=== PATIENT | male | born 1960 | race Caucasian/White ===

== ENCOUNTER 2019-06-05 13:21 | Emergency (ER) | payer OTHER, SELFPAY ==
[2019-06-05 13:40] VITALS: BP 155/92; PULSE 68; RESP 13; TEMP 35.5; O2SAT 99
[2019-06-05 14:38] LABS: Add Manual Diff / Slide Review NO; Basophils Absolute Auto 0 /uL (0-100); Basophils Percent Auto 0.5 % (0-2); Eosinophils Absolute Auto 200 /uL (0-450); Hematocrit 40.8 % (41-53); Hemoglobin 13.9 g/dL (13.5-17.5); Lymphocytes Absolute Auto 1800 /uL (1100-4500); Lymphocytes Percent Auto 19.1 % (25-40); Mean Corpuscular Hemoglobin 29.5 PG (26-34); Mean Corpuscular Volume 86.8 fL (80-100); Monocytes Absolute Auto 900 /uL (0-900); Monocytes Percent Auto 9.1 % (3-14); Neutrophils Absolute Auto 6600 /uL (1500-7000); Neutrophils Percent Auto 69.3 % (50-75); Platelet Count 259 X10^3/uL (150-400); Red Blood Cell Count 4.71 X10^6/uL (4.5-5.9); Red Cell Distribution Width 13.3 % (11.6-14.8); White Blood Cell Count 9.6 X10^3/uL (4.5-11.0)
[2019-06-05 14:55] LABS: Alanine Aminotransferase 28 IU/L (<50); Albumin 4.6 g/dL (3.5-5.0); Albumin Globulin Ratio 1.4 (1.0-2.8); Alkaline Phosphatase 100 U/L (38-126); Aspartate Aminotransferase 28 IU/L (17-59); BUN Creatinine Ratio 18.6 (6-22); Bilirubin Total 0.5 mg/dL (0.2-1.3); Blood Urea Nitrogen 13 mg/dL (9-20); Calcium 9.5 mg/dL (8.4-10.2); Carbon Dioxide 28 mmol/L (22-32); Chloride 100 mmol/L (98-107); Creatine Kinase 71 U/L (55-170); Estimated Glomerular Filt Rate > 60.0 mL/min (>60); Globulin 3.2 g/dL (1.7-4.1); Glucose 119 mg/dL (70-100); HEMOLYSIS < 15 (0-50); Potassium 4.4 mmol/L (3.4-5.1); Sodium 140 mmol/L (137-145); Total Protein 7.8 g/dL (6.3-8.2)
[2019-06-05 15:07] LABS: Troponin I < 0.012 ng/mL (0.01-0.034)
--- NOTE | 2019-06-05 15:29 | DI.RAD.S_ITS ---
PROCEDURE: XR CHEST 1V INDICATIONS: Palpitations TECHNIQUE: One view of the chest was acquired. COMPARISON: None. FINDINGS: Surgical changes and devices: None. Lungs and pleura: On this semiupright portable chest examination, no large pneumothorax or large pleural effusions are seen. No focal infiltrates are seen. Mediastinum: Mediastinal contours appear normal. Heart size is normal. Atherosclerotic calcification of the aortic arch is noted. Bones and chest wall: No suspicious bony lesions. Age-appropriate bony degenerative changes are seen. Overlying soft tissues appear unremarkable. IMPRESSION: Portable chest within normal limits. Dictated by: Denis Andrade M.D. on 06/05/2019 at 14:58 Approved by: Denis Andrade M.D. on 06/05/2019 at 14:58
--- NOTE | 2019-06-05 15:46 | ED.ARRPALP ---
HPI - Arrhythmia/Palpitations <MADELEINE Dai - Last Filed: 06/05/19 21:28> General Chief Complaint: Arrhythmia/Palpitations Stated Complaint: Pain and numbness on left side Time Seen by Provider: 06/05/19 15:28 Mode of arrival: Ambulatory History of Present Illness HPI narrative: 59-year-old male with a history of diabetes II, hyperlipidemia, and hypertension, presents emergency department today complaining of left substernal chest pressure and pain over the past week. He states it is intermittent 6/10 and is slightly worse with activity. He states he seen his primary care provider a few days ago for these episodes and was given new blood pressure medication. He has been taking the new blood pressure medication but states he has been feeling ?not well ?all weekend. However, today he reports feeling some shortness of breath with exertion and left arm numbness and tingling, he states the symptoms resolved after he rested for 5-10 minutes. He states occasionally he feels like he can feel his heart beat in his neck and his blood pressure machine registered ?irregular heart beat ?. Patient denies vomiting, fevers, diarrhea, abdominal pain, history of heart problems, cardiac surgeries, or other concerns. He states both of his brothers have had MIs in their 50s. Review of Systems <MADELEINE Dai - Last Filed: 06/05/19 21:28> Review of Systems Narrative: REVIEW OF SYSTEMS: GENERAL: Denies fever or chills. HENT: No head trauma, hearing loss or sore throat. EYES: No loss of vision, double vision, eye pain, or irritation. CARDIOVASCULAR: Patient reports chest pain, see HPI. RESPIRATORY: Patient reports intermittent shortness of breath, see HPI. GASTROINTESTINAL: No nausea, vomiting, diarrhea, or constipation. GENITOURINARY: No flank pain or dysuria. MUSCULOSKELETAL: No pain, weakness, or deformities. INTEGUMENTARY: No rash, lesions, or pruritus. NEURO: No numbness, tingling, memory loss, or confusion. PSYCH: No behavior or mood changes. Patient History <MADELEINE Dai - Last Filed: 06/05/19 21:28> Medical History Diabetes (Acute) Hypertension (Acute) Obesity (Acute) alcohol intake frequency: 0-2 drinks per day Exam <MADELEINE Dai - Last Filed: 06/05/19 21:28> Narrative Exam Narrative: PHYSICAL EXAMINATION: GENERAL: Well groomed, alert, and cooperative. Answers questions promptly and appropriately. Vital signs noted. HENT: Normocephalic, atraumatic. Ear canals patent. Oral mucosa is pink and moist. EYES: Conjunctiva pink, sclera white, no periorbital swelling. CHEST: Normal to inspection and without deformities. CARDIOVASCULAR: S1 and S2 sounds normal. Regular rate and rhythm, no murmurs, clicks, or bruits. No pedal edema. RESPIRATORY: Normal respiratory rate, trachea midline, airway patent. No stridor, nasal flaring or accessory muscle use. Lungs are clear in all tran without wheeze, rhonchi, or crackles. GASTROINTESTINAL: Bowel sounds normoactive. Abdomen is soft and non-tender. No organomegaly. MUSCULOSKELETAL: Normal gait and coordination. Equal tone and mass bilaterally. EXTREMITIES: CMS intact. Moves all extremities. SKIN: Warm, dry, soft, appropriate color for ethnicity. No lesions, rashes, or wounds. NEURO: Alert and Oriented X 3. Good coordination. No ataxia, or sensory deficits, or cognitive issues. PSYCH: Appropriate affect and mood. Initial Vital Signs Initial Vital Signs: Vital Signs Temperature 96 F L 06/05/19 13:40 Pulse Rate 68 06/05/19 13:40 Respiratory Rate 13 06/05/19 13:40 Blood Pressure 155/92 H 06/05/19 13:40 Pulse Oximetry 99 06/05/19 13:40 <Amanda Alvarez DO - Last Filed: 06/10/19 18:24> Initial Vital Signs Initial Vital Signs: Vital Signs Temperature 96 F L 06/05/19 13:40 Pulse Rate 68 06/05/19 13:40 Respiratory Rate 13 06/05/19 13:40 Blood Pressure 155/92 H 06/05/19 13:40 Pulse Oximetry 99 06/05/19 13:40 Scores <Brianne MADELEINE Nobles - Last Filed: 06/05/19 21:28> HEART Score Heart Score history: Moderately Suspicious Heart Score EKG: Normal Heart Score Age: 45-64 years old Heart Score risk factors: > 3 risk factors or hx of atherosclerotic disease Heart Score troponin: < or = to normal limit Heart Score Total: 4 PERC Score Age greater than or equal to 50 years: Yes Heart rate greater than or equal to 100 bpm: No Room Air O2 Sat less than 95%: No Unilateral leg swelling: No Recent trauma or surgery: No Hemoptysis: No Prior PE or DVT: No Hormone Use: No Total PERC Score: 1 Course <BrianneMADELEINE Brenner - Last Filed: 06/05/19 21:28> Course Course Narrative: I had an extensive conversation with patient about his risk factors for coronary artery disease, he was given option for admission under observation or close outpatient treatment. Patient elected close outpatient treatment. This is acceptable as his labs, x-ray, EKG, or non-remarkable in his heart score is a 4. Orders Ordered: ED Orders 06/05/19 14:26 Complete Blood Count AUTO DIFF Stat Comprehensive Metabolic Panel Stat Troponin & CK Cardiac Panel Stat 06/05/19 15:29 XR chest 1V Stat Reevaluation(s) Reevaluation #1: Upon discharge, patient continued to deny chest pain. Consultations Consultation #1: Patient staffed with Dr. Alvarez. Vital Signs Vital signs: Vital Signs - 8 hr 06/05/19 13:40 Temperature 96 F L Pulse Rate 68 Respiratory Rate 13 Blood Pressure 155/92 H Pulse Oximetry 99 <Amanda Alvarez DO - Last Filed: 06/10/19 18:24> Orders Ordered: ED Orders 06/05/19 14:26 Complete Blood Count AUTO DIFF Stat Comprehensive Metabolic Panel Stat Troponin & CK Cardiac Panel Stat 06/05/19 15:29 XR chest 1V Stat Vital Signs Vital signs: Vital Signs - 8 hr 06/05/19 13:40 Temperature 96 F L Pulse Rate 68 Respiratory Rate 13 Blood Pressure 155/92 H Pulse Oximetry 99 MDM - Arrhythmia/Palpitations <BrianneMADELEINE Brenner - Last Filed: 06/05/19 21:28> Medical Records Attestation: I reviewed the patient's medical records. Lab Data Attestation: I reviewed the patient's lab results. Result diagrams: 06/05/19 14:26 06/05/19 14:26 Labs: Lab Results 06/05/19 06/05/19 Range/Units 14:26 14:26 WBC 9.6 (4.5-11.0) X10^3/uL RBC 4.71 (4.5-5.9) X10^6/uL Hgb 13.9 (13.5-17.5) g/dL Hct 40.8 L (41-53) % MCV 86.8 (80-100) fL MCH 29.5 (26-34) PG MCHC 34.0 (30-36) % RDW 13.3 (11.6-14.8) % Plt Count 259 (150-400) X10^3/uL Neut % (Auto) 69.3 (50-75) % Lymph % (Auto) 19.1 L (25-40) % [place] % (Auto) 9.1 (3-14) % Eos % (Auto) 2.0 (2-4) % Baso % (Auto) 0.5 (0-2) % Neut # (Auto) 6600 (5937-1153) /uL Lymph # (Auto) 1800 (4524-5474) /uL [place] # (Auto) 900 (0-900) /uL Eos # (Auto) 200 (0-450) /uL Baso # (Auto) 0 (0-100) /uL Sodium 140 (137-145) mmol/L Potassium 4.4 (3.4-5.1) mmol/L Chloride 100 (98-107) mmol/L Carbon Dioxide 28 (22-32) mmol/L BUN 13 (9-20) mg/dL Creatinine 0.70 (0.66-1.25) mg/dL Estimated GFR > 60.0 (>60) mL/min BUN/Creatinine Ratio 18.6 (6-22) Glucose 119 H (70-100) mg/dL Calcium 9.5 (8.4-10.2) mg/dL Total Bilirubin 0.5 (0.2-1.3) mg/dL AST 28 (17-59) IU/L ALT 28 (<50) IU/L Alkaline Phosphatase 100 (38-126) U/L Total Creatine Kinase 71 (55-170) U/L CK-MB (CK-2) TNP CK-MB (CK-2) Rel Index TNP Troponin I < 0.012 (0.01-0.034) ng/mL Total Protein 7.8 (6.3-8.2) g/dL Albumin 4.6 (3.5-5.0) g/dL Globulin 3.2 (1.7-4.1) g/dL Albumin/Globulin Ratio 1.4 (1.0-2.8) Imaging Data Chest x-ray: Radiologist's impression: [address] [place] [id number] XRay Report Signed Patient: Sloan Chaves EMR#: [id number] : 1960Acct:[id number] Age/Sex: 59 / MDate of Service: 06/05/19 Loc: ED Accession Number: [id number] Procedure: XR chest 1V Ordering Provider: Brianne Nobles PROCEDURE: XR CHEST 1V INDICATIONS: Palpitations TECHNIQUE: One view of the chest was acquired. COMPARISON: None. FINDINGS: Surgical changes and devices: None. Lungs and pleura: On this semiupright portable chest examination, no large pneumothorax or large pleural effusions are seen. No focal infiltrates are seen. Mediastinum: Mediastinal contours appear normal. Heart size is normal. Atherosclerotic calcification of the aortic arch is noted. Bones and chest wall: No suspicious bony lesions. Age-appropriate bony degenerative changes are seen. Overlying soft tissues appear unremarkable. IMPRESSION: Portable chest within normal limits. Dictated by: Denis Andrade M.D. on 06/05/2019 at 14:58 Approved by: Denis Andrade M.D. on 06/05/2019 at 14:58 ECG Data Interpretation: Sinus rhythm, rate 66, CO interval 182, QTC 422. No ST elevation or ST depression. No T-wave abnormal T. no ectopy. EKG was also viewed by Dr. Alvarez per protocol. MDM Narrative Medical decision making narrative: This is a 59-year-old male with multiple risk factors for coronary artery disease (HLD, DM, HTN, obesity), who presents emergency department complaining of chest discomfort that is worse with exertion. Patient is hemodynamically stable, He has no changes on EKG, chest x-rays non-remarkable, and laboratory blood work is within normal limits. Differential for chest pain includes cardiac etiology, PE, musculoskeletal strain, aortic aneurysm/dissection, or abdominal etiology. I have a concern for cardiac etiology due to worsening chest pain with exertion, risk factors, family history, pain was not reproducible on examination, and patient denies any history of trauma to the area). Less suspicion of PE as PERC score is 1, no tachycardia or hypoxia, no history of long trips or other risk factors. Less likely aortic aneurysm/dissection due to intermittent description of pain, lack of back pain, and patient's hemodynamic stability. Less likely musculoskeletal strain as patient denies any trauma or increase in activity, it is not reproducible on examination. Less likely abdominal etiology due to lack of other symptoms such as nausea vomiting as well as lack of abdominal pain and normal laboratory work. After discussion with my attending, an extensive conversation with the patient about a choice for admission to observation or close outpatient follow-up. He was encouraged to get a stress test within the next week to further evaluate his chest pain. Patient reports he had a negative stress test in 2017, however due to onset of new symptoms initial stress test is encouraged at this time. Very strict ED precautions given for new or worsening symptoms. A call was placed to patient's primary care provider Dr. Garcia, a message was left with the nurse that a stress test was advised within the week due to patients worsening symptoms and risk factors. <Amanda Alvarez, DO - Last Filed: 06/10/19 18:24> Lab Data Attestation: I reviewed the patient's lab results. Labs: Lab Results 06/05/19 06/05/19 Range/Units 14:26 14:26 WBC 9.6 (4.5-11.0) X10^3/uL RBC 4.71 (4.5-5.9) X10^6/uL Hgb 13.9 (13.5-17.5) g/dL Hct 40.8 L (41-53) % MCV 86.8 (80-100) fL MCH 29.5 (26-34) PG MCHC 34.0 (30-36) % RDW 13.3 (11.6-14.8) % Plt Count 259 (150-400) X10^3/uL Neut % (Auto) 69.3 (50-75) % Lymph % (Auto) 19.1 L (25-40) % [place] % (Auto) 9.1 (3-14) % Eos % (Auto) 2.0 (2-4) % Baso % (Auto) 0.5 (0-2) % Neut # (Auto) 6600 (6618-1862) /uL Lymph # (Auto) 1800 (1940-7181) /uL [place] # (Auto) 900 (0-900) /uL Eos # (Auto) 200 (0-450) /uL Baso # (Auto) 0 (0-100) /uL Sodium 140 (137-145) mmol/L Potassium 4.4 (3.4-5.1) mmol/L Chloride 100 (98-107) mmol/L Carbon Dioxide 28 (22-32) mmol/L BUN 13 (9-20) mg/dL Creatinine 0.70 (0.66-1.25) mg/dL Estimated GFR > 60.0 (>60) mL/min BUN/Creatinine Ratio 18.6 (6-22) Glucose 119 H (70-100) mg/dL Calcium 9.5 (8.4-10.2) mg/dL Total Bilirubin 0.5 (0.2-1.3) mg/dL AST 28 (17-59) IU/L ALT 28 (<50) IU/L Alkaline Phosphatase 100 (38-126) U/L Total Creatine Kinase 71 (55-170) U/L CK-MB (CK-2) TNP CK-MB (CK-2) Rel Index TNP Troponin I < 0.012 (0.01-0.034) ng/mL Total Protein 7.8 (6.3-8.2) g/dL Albumin 4.6 (3.5-5.0) g/dL Globulin 3.2 (1.7-4.1) g/dL Albumin/Globulin Ratio 1.4 (1.0-2.8) ECG Data Attestation: I personally reviewed and interpreted this ECG as follows: MDM Narrative Medical decision making narrative: Case was reviewed with provider. Patient was recommended observation but did not wish to have overnight stay and arrangements were made with primary care physician for short term follow up for stress testing as patient has multiple risk factors. Discharge Plan Departure Patient Disposition: Home Clinical Impression: Chest pain Qualifiers: Chest pain type: unspecified Qualified Code(s): R07.9 - Chest pain, unspecified Discharge Date/Time: 06/05/19 16:29 Instructions: DI for Chest Pain Activity Restrictions/Additional Instructions: Thank you for entrusting me with your care today. As discussed, your chest x-ray, laboratory work, EKG were negative for any acute findings. However, your description of chest pain is concerning for cardiac etiology. You were offered admission for observation or to be discharged with close follow-up, since you chose to be discharged, I left a message with your primary care provider, Dr. Terrance Garcia, that a cardiac stress test within the week is highly advisable. Please monitor symptoms closely and return to the emergency department and/or call 911 if your symptoms worsen. Please continue to take your blood pressure, diabetes, and cholesterol medication as prescribed. Referrals: Terrance Garcia MD [Primary Care Provider] -
== END 2019-06-05 16:29 | disposition home or self-care (01) ==
PROVIDERS: Emergency Medicine; Emergency Provider Nurse Practitioner; Family Provider Family Medicine; PCP Family Medicine
DX: R07.9 Chest pain, unspecified (principal); I10 Essential (primary) hypertension; E11.9 Type 2 diabetes mellitus without complications; E78.5 Hyperlipidemia, unspecified; R00.2 Palpitations; E66.9 Obesity, unspecified
CPT/HCPCS: 36415; 71045; 80053; 82550; 84484; 85025; 93005; 99282; 99285